=== PATIENT | female | born 1950 | race Caucasian/White ===

== ENCOUNTER 2020-04-07 15:16 | Emergency (ER) | payer MEDICARE, OTHER ==
--- NOTE | 2020-04-07 15:37 | ED Physician Documentation ---
PD HPI LOWER EXT INJURY - Stated complaint Stated Complaint: RIGHT LEG PAIN - Chief complaint Chief Complaint: Trauma Ext - History obtained from History obtained from: Patient - Additional information Additional information: About 10 days ago one of her goats butted her behind the right hamstring. About 5 days later developed pain and swelling, adalberto at night of posterior/medial R knee and calf. No dyspnea. Review of Systems Constitutional: reports: Reviewed and negative Throat: reports: Reviewed and negative Cardiac: reports: Reviewed and negative Respiratory: reports: Reviewed and negative PD PAST MEDICAL HISTORY - Past Medical History Past Medical History: Yes Cardiovascular: Hypertension, High cholesterol Respiratory: Asthma Endocrine/Autoimmune: Type 2 diabetes, Other GI: GERD, Pancreatitis, Hepatitis, Cirrhosis, Diverticulitis HEENT: Macular degeneration, Other Musculoskeletal: Osteopenia, Other Derm: Psoriasis - Past Surgical History Past Surgical History: Yes General: Appendectomy HEENT: Cataracts, Detached retina repair, Tonsil/Adenoidectomy - Present Medications Home Medications: Ambulatory Orders Medication Instructions Recorded Confirmed Aspirin Chewable [St Alpesh 81 mg PO DAILY 05/17/16 07/22/17 Aspirin] Insulin Glargine [Lantus Solostar] 8 - 16 unit SQ BID 05/17/16 07/22/17 Insulin Lispro [Humalog Kwikpen] 6 - 10 unit SQ AC 05/17/16 07/22/17 Lactobacillus Acidophilus 1 each PO BID 05/17/16 07/22/17 [Probiotic Acidophilus] Lipase/Protease/Amylase [Pancreaze 1 each PO AC 05/17/16 07/22/17 21,000 Unit Marco Chicas] Losartan Potassium 25 mg PO DAILY 05/17/16 07/22/17 Metformin HCl 1,000 mg PO BID 05/17/16 07/22/17 Omeprazole 20 mg PO DAILY 05/17/16 07/22/17 Pyridoxine HCl (Vitamin B6) 250 mg PO DAILY 05/17/16 07/22/17 [Vitamin B-6] atenoloL [Tenormin] 12.5 mg PO DAILY 05/17/16 07/22/17 Lipase/Protease/Amylase [Ximena Chicas 07/22/17 24,000 Units Capsule] Promethazine [Phenergan] 25 - 50 mg PO Q6H PRN #10 tab 07/22/17 - Allergies Allergies/Adverse Reactions: Allergies Allergy/AdvReac Type Severity Reaction Status Date / Time acetaminophen [From Tylenol] Allergy Unknown Verified 04/07/20 15:21 amlodipine Allergy Unknown Verified 04/07/20 15:21 codeine Allergy Unknown Verified 04/07/20 15:21 diazepam Allergy Unknown Verified 04/07/20 15:21 erythromycin lactobionate * Allergy Unknown Verified 04/07/20 15:21 [From Erythrocin] lisinopril Allergy Unknown Verified 04/07/20 15:21 morphine Allergy Unknown Verified 04/07/20 15:21 nifedipine Allergy Unknown Verified 04/07/20 15:21 NSAIDS (Non-Steroidal Allergy Unknown Verified 04/07/20 15:21 Anti-Inflamma simvastatin Allergy Unknown Verified 04/07/20 15:21 Sulfa (Sulfonamide Allergy Unknown Verified 04/07/20 15:21 Antibiotics) tramadol Allergy Unknown Verified 04/07/20 15:21 - Social History Does the pt smoke?: No Smoking Status: Never smoker PD ED PE NORMAL - Vitals Vital signs reviewed: Yes - General General: Alert and oriented X 3, No acute distress - Extremities Extremities: Other (Right knee has a small effusion. She is quite tender over the medial joint line in the popliteal fossa. There is moderate calf swelling with negative Homans sign.) - Neuro Neuro: Alert and oriented X 3, Normal speech Results - Vitals Vitals: Vital Signs - 24 hr 04/07/20 04/07/20 15:21 17:37 Temperature 36.5 C 37.5 C Heart Rate 114 H 89 Respiratory 16 18 Rate Blood Pressure 183/81 H 155/75 H O2 Saturation 98 100 Oxygen O2 Source Room air - Rads (name of study) RLE duplex Radiology: EMP read contemporaneously, See rad report R knee XR Radiology: EMP read contemporaneously, See rad report PD MEDICAL DECISION MAKING - ED course ED course: 69-year-old woman with a posttraumatic leg pain and swelling on the right, there is a knee effusion but also calf edema. Differential includes DVT, Rebolledo's cyst, knee sprain. Imaging shows Rebolledo's cyst but no other abnormalities. Departure - Departure Disposition: 01 Home, Self Care Clinical Impression: Rebolledo's cyst of knee Qualifiers: Laterality: right Qualified Code(s): M71.21 - Synovial cyst of popliteal space [Rebolledo], right knee Condition: Good Record reviewed to determine appropriate education?: Yes Instructions: ED Cyst Rebolledo Follow-Up: [facility] [Provider Group] Comments: Ice it and elevate it, if not better in a reasonable timeframe you can follow-up with the orthopedic surgeons for further evaluation and treatment. Return if worse. Discharge Date/Time: 04/07/20 17:45
--- NOTE | 2020-04-07 16:15 | XRAY Report ---
PROCEDURE: Knee 4 View RT INDICATIONS: knee inj TECHNIQUE: 4 views of the right knee(s) were acquired. COMPARISON: None. FINDINGS: Bones: No fractures or dislocations. No suspicious bony lesions. Soft tissues: Small suprapatellar joint effusion is seen. No suspicious soft tissue calcifications. IMPRESSION: No acute right knee fracture or dislocation. Small joint effusion. Reviewed by: Drew Rocha MD on 04/07/2020 4:13 PM PDT Approved by: Drew Rocha MD on 04/07/2020 4:13 PM PDT Station ID: [id number]
--- NOTE | 2020-04-07 17:33 | Ultrasound Report ---
PROCEDURE: Duplex Ext Veins Right INDICATIONS: leg swelling TECHNIQUE: Real-time imaging, as well as color and pulse Doppler interrogation, were performed of the lower extr emity deep veins from the inguinal ligament to the popliteal fossa. COMPARISON: None. FINDINGS: The deep veins are normally compressible, and free of intraluminal thrombus. Color and pu lse Doppler demonstrate normal phasic intraluminal flow. There is normal augmentation response to di stal compression maneuver. 35 mm Rebolledo's cyst. IMPRESSION: 1. No evidence of right lower extremity DVT. 2. Rebolledo's cyst. Reviewed by: Selina Mcdaniel MD on 04/07/2020 4:31 PM SHOSHANA Approved by: Selina Mcdaniel MD on 04/07/2020 4:31 PM SHOSHANA Station ID: [id number]
[2020-04-07 17:38] VITALS: BP 155/75
== END 2020-04-07 17:45 | disposition home or self-care (01) ==
LOC: ED 15:16
DX: M71.21 Synovial cyst of popliteal space [Baker], right knee (principal); M25.461 Effusion, right knee; M79.661 Pain in right lower leg; M79.89 Other specified soft tissue disorders; W55.32XA Struck by other hoof stock, initial encounter; I10 Essential (primary) hypertension; E11.9 Type 2 diabetes mellitus without complications; Z79.4 Long term (current) use of insulin; Z79.82 Long term (current) use of aspirin
CPT/HCPCS: 99283; 99284

== ENCOUNTER 2020-06-02 11:39 | Outpatient (CLI) | payer MEDICARE, OTHER ==
[2020-06-02] MEDS ORDERED: IOVERSOL 320 100 ML VIAL IVP ONE ×2 (11:55→17:01)
--- NOTE | 2020-06-02 15:50 | CT Report ---
PROCEDURE: Abdomen/Pelvis W INDICATIONS: ABD PAIN, NAUSEA W/EATING, HX OF PANCREATITIS CONTRAST: IV CONTRAST: Optiray 320 ml: 100 PO CONTRAST: *NO PO CONTRAST TECHNIQUE: After the administration of contrast, 5 mm thick sections acquired from the diaphragms to the sym physis. 5 mm thick coronal and sagittal reformats were acquired. For radiation dose reduction, the following was used: automated exposure control, adjustment of mA and/or kV according to patient size . COMPARISON: None. FINDINGS: Image quality: Excellent. ABDOMEN: Lung bases: Lung bases are clear. Heart size is normal. Solid organs: Liver and spleen are normal in size and enhancement. Gallbladder appears normal Bili nikko system is non dilated. Pancreas enhances normally. There are several punctate calcifications at the anterior border of the pancreatic head. No adrenal nodules. Kidneys demonstrate normal size and enhancement, without hydronephrosis. Peritoneum and bowel: Bowel loops demonstrate normal wall thickness and caliber. No free fluid or a ir. Nodes and vessels: No retroperitoneal or mesenteric adenopathy by size criteria. Aorta and inferior vena cava are normal in size. Miscellaneous: No ventral hernias. PELVIS: Genitourinary: Bladder wall thickness is normal. Miscellaneous: No inguinal hernias or adenopathy. Bones: No suspicious bony lesions. No vertebral body compression fractures. IMPRESSION: No sign of acute pancreatitis, no sign of biliary distention. Several punctate calcifica tions are present at the anterior border of the pancreatic head seen on CT series 3 image 35, but the se likely are dystrophic calcifications related to prior pancreatitis. Reviewed by: Mamadou Jimenez MD on 06/02/2020 3:48 PM PDT Approved by: Mamadou Jimenez MD on 06/02/2020 3:48 PM PDT Station ID: [id number]
== END 2020-06-02 11:40 | disposition home or self-care (01) ==
LOC: DI 11:39
PROVIDERS: ATTEND Physician Assistant Medical
DX: K86.89 Other specified diseases of pancreas (principal)
CPT/HCPCS: 74177; Q9967

== ENCOUNTER 2020-11-20 13:00 | Emergency (ER) | payer MEDICARE, OTHER ==
[2020-11-20] MEDS ORDERED: SODIUM CHLORIDE 0.9% 1,000 ML IV STA (13:56)
[2020-11-20] MEDS ORDERED: ONDANSETRON 4 MG/2 ML VIAL IVP STA (13:56)
--- NOTE | 2020-11-20 14:02 | ED Physician Documentation ---
History of Present Illness - Stated complaint Stated Complaint: HEADACHE, LOW BODY MUSCLE ACHES - Chief complaint Chief Complaint: Abd Pain - Additonal information Additional information: 70-year-old female presents emergency department for evaluation of generalized leg cramping fatigue and diarrhea. She reports that 3 days ago she began having multiple loose watery stools a day. The diarrhea has somewhat resolved after taking Imodium but the cramping began this morning which worried her. She has had no fevers or vomiting. She has some dysuria but thinks it may be due to dehydration. She does have a history that includes type 2 diabetes, hypertension as well as chronic pancreatitis. Reports her blood sugars have been in the 150s to the 200s at home. Review of Systems Constitutional: reports: Myalgias, Fatigue. denies: Fever, Chills Eyes: reports: Reviewed and negative Ears: reports: Reviewed and negative Nose: reports: Reviewed and negative Throat: reports: Reviewed and negative Cardiac: denies: Chest pain / pressure, Palpitations Respiratory: denies: Dyspnea, Cough GI: reports: Abdominal Pain, Diarrhea. denies: Nausea, Vomiting, Hematemesis, Bloody / black stool : reports: Dysuria. denies: Frequency, Hesitancy, Incontinent Skin: reports: Reviewed and negative Musculoskeletal: reports: Other (Cramping of the bilateral lower extremities) Neurologic: reports: Generalized weakness. denies: Focal weakness, Numbness, Difficulty speaking, Near syncope, Syncope, Confused, Headache, LOC Psychiatric: reports: Reviewed and negative PD PAST MEDICAL HISTORY - Past Medical History Cardiovascular: Hypertension, High cholesterol Respiratory: Asthma Endocrine/Autoimmune: Type 2 diabetes, Other GI: GERD, Pancreatitis, Hepatitis, Cirrhosis, Diverticulitis HEENT: Macular degeneration, Other Musculoskeletal: Osteopenia, Other Derm: Psoriasis - Past Surgical History Past Surgical History: Yes General: Appendectomy HEENT: Cataracts, Detached retina repair, Tonsil/Adenoidectomy - Present Medications Home Medications: Ambulatory Orders Medication Instructions Recorded Confirmed Aspirin Chewable [St Alpesh 81 mg PO DAILY 05/17/16 11/20/20 Aspirin] Insulin Glargine [Lantus Solostar] 8 - 16 unit SQ BID 05/17/16 11/20/20 Insulin Lispro [Humalog Kwikpen] 6 - 10 unit SQ AC 05/17/16 11/20/20 Lactobacillus Acidophilus 1 each PO BID 05/17/16 11/20/20 [Probiotic Acidophilus] Lipase/Protease/Amylase [Pancreaze 1 each PO AC 05/17/16 11/20/20 21,000 Unit Cap ] Losartan Potassium 37.5 mg PO DAILY 05/17/16 11/20/20 Omeprazole 20 mg PO DAILY 05/17/16 11/20/20 Lipase/Protease/Amylase [Creon Dr 1 cap PO TID 07/22/17 11/20/20 24,000 Units Capsule] Albuterol Sulfate [Proair Hfa 1 - 2 puffs INH Q4H PRN 11/20/20 11/20/20 Inhaler] Insulin Glargine [Lantus Solostar] 20 units SQ BID 11/20/20 11/20/20 - Allergies Allergies/Adverse Reactions: Allergies Allergy/AdvReac Type Severity Reaction Status Date / Time acetaminophen [From Tylenol] Allergy Unknown Verified 11/20/20 13:21 amlodipine Allergy Unknown Verified 11/20/20 13:21 codeine Allergy Unknown Verified 11/20/20 13:21 diazepam Allergy Unknown Verified 11/20/20 13:21 erythromycin lactobionate * Allergy Unknown Verified 11/20/20 13:21 [From Erythrocin] lisinopril Allergy Unknown Verified 11/20/20 13:21 morphine Allergy Unknown Verified 11/20/20 13:21 nifedipine Allergy Unknown Verified 11/20/20 13:21 NSAIDS (Non-Steroidal Allergy Unknown Verified 11/20/20 13:21 Anti-Inflamma simvastatin Allergy Unknown Verified 11/20/20 13:21 Sulfa (Sulfonamide Allergy Unknown Verified 11/20/20 13:21 Antibiotics) tramadol Allergy Unknown Verified 11/20/20 13:21 - Social History Does the pt smoke?: No Smoking Status: Never smoker PD ED PE EXPANDED - General General: Alert, No acute distress, Well developed/nourished - Cardiac Cardiac: Tachy, Radial strong equal, Pedal strong equal, Cap refill < 2 sec - Respiratory Respiratory: Clear to ausultation kingsley. No: Distress, Labored, Stridor - Abdomen Abdomen: Hyperactive BS, Tender to palpation (Left-sided abdominal tenderness without guarding or rebound. No CVA tenderness bilaterally). No: Rebound, Guarding - Back Back: Normal exam. No: Vertebral tenderness, Soft tissue tenderness, CVA TTP right, CVA TTP left - Derm Derm: Normal color. No: Rash, Petecchiae, Purpura - Extremities Extremities: Normal, Pedal Pulses Present. No: Deformity, Tenderness, Pedal edema bilateral, Right calf TTP/cord, Left calf TTP/cord - Neuro Neuro: Alert and Oriented X 3, CNII-XII intact, Normal gait, Normal speech - GCS Eye Opening: Spontaneous Motor: Obeys Commands Verbal: Oriented Total: 15 Results - Vitals Vitals: Vital Signs - 24 hr 11/20/20 11/20/20 13:14 16:11 Temperature 36.5 C Heart Rate 111 H 93 Respiratory 14 18 Rate Blood Pressure 160/76 H 143/72 H O2 Saturation 97 98 Oxygen O2 Source Room air - Labs Labs: Laboratory Tests 11/20/20 11/20/20 11/20/20 13:57 14:16 14:16 WBC 7.0 RBC 4.85 Hgb 14.6 Hct 45.0 MCV 92.8 MCH 30.1 MCHC 32.4 RDW 12.3 Plt Count 246 MPV 8.9 Neut # (Auto) 4.2 Lymph # (Auto) 2.2 [place] # (Auto) 0.4 Eos # (Auto) 0.1 Baso # (Auto) 0.0 Absolute Nucleated RBC 0.00 Nucleated RBC % 0.0 Sodium 140 Potassium 4.0 Chloride 99 L Carbon Dioxide 29 Anion Gap 12.0 BUN 14 Creatinine 0.7 Estimated GFR (MDRD) 82 L Glucose 175 H Calcium 9.9 Total Bilirubin 0.7 AST 53 H ALT 47 Alkaline Phosphatase 90 Total Protein 8.2 Albumin 4.4 Globulin 3.8 Albumin/Globulin Ratio 1.2 Lipase 23 Urine Color YELLOW Urine Clarity CLEAR Urine pH 6.0 Ur Specific Mcpherson 1.010 Urine Protein NEGATIVE Urine Glucose (UA) NEGATIVE Urine Ketones NEGATIVE Urine Occult Blood NEGATIVE Urine Nitrite NEGATIVE Urine Bilirubin NEGATIVE Urine Urobilinogen 0.2 (NORMAL) Ur Leukocyte Esterase NEGATIVE Ur Microscopic Review NOT INDICATED Urine Culture Comments NOT INDICATED - Rads (name of study) CT abd Radiology: Final report received (Tonic diverticulosis without signs of diverticulitis. Chronic coarse calcifications in the pancreas may represent chronic pancreatitis.) PD MEDICAL DECISION MAKING - ED course Complexity details: reviewed results, re-evaluated patient, considered differential, d/w patient ED course: This is a well-appearing 70-year-old female that presents to the emergency department for evaluation of cramping in her arms and legs. This followed 2 days of diarrhea which has begun to resolve. She had no fever or leukocytosis. No findings of infection in her urine. CT of the abdomen did not show any findings of concern. She is noted to have chronic pancreatitis which is unchanged. She is tolerating oral fluids. Patient was given 1 L crystalloid here in the emergency department. I suspect that a mild dehydration may been attributed to the cramping. Patient is feeling better and will be discharged home with routine follow-up with her primary care provider Departure - Departure Disposition: Home, Self Care Clinical Impression: Cramp in muscle Condition: Stable Record reviewed to determine appropriate education?: Yes Follow-Up: Dora Bell PA-C [Primary Care Provider] - Comments: You were seen today in the emergency department for cramping in your lower extremities. This followed a few days of diarrhea. I suspect mild dehydration may have been causing your cramping. Reassuringly all of your labs were essentially normal. Your urine showed no signs of infection. The CT scan of the abdomen was also without any worrisome findings. I recommend that you go home continue to stay well-hydrated and drink Pedialyte or eat soups and broth to make sure that your electrolytes remain steady. Return to the emergency department if you develop fevers worsening symptoms, develop chest pain, feel suddenly short of breath or have any other emergent symptoms.
[2020-11-20] MEDS ORDERED: IOVERSOL 320 100 ML VIAL IVP ONE ×2 (14:26→15:10)
[2020-11-20 14:27] LABS: BILIRUBIN,URINE NEGATIVE (NEGATIVE); GLUCOSE, URINE (UA) NEGATIVE (NEGATIVE); KETONES,URINE (UA) NEGATIVE (NEGATIVE); LEUKOCYTE ESTERASE, URINE NEGATIVE (NEGATIVE); NITRITE,URINE NEGATIVE (NEGATIVE); OCCULT BLOOD,URINE NEGATIVE (NEGATIVE); PROTEIN,URINE NEGATIVE (NEGATIVE); UROBILINOGEN,URINE 0.2 (NORMAL) E.U./dL (NORMAL)
[2020-11-20 14:28] LABS: BASOPHILS % (AUTO) 0.4 %; EOSINOPHILS # (AUTO) 0.1 10^3/uL (0.0-0.7); EOSINOPHILS % (AUTO) 1.6 %; HGB - HEMOGLOBIN 14.6 g/dL (12.0-16.0); LYMPHOCYTES # (AUTO) 2.2 10^3/uL (1.5-3.5); LYMPHOCYTES % (AUTO) 32.1 %; MEAN CORPUSCULAR HEMOGLOBIN 30.1 pg (27.0-31.0); MEAN CORPUSCULAR HGB CONC 32.4 g/dL (32.0-36.0); MEAN CORPUSCULAR VOLUME 92.8 fL (81.0-99.0); MEAN PLATELET VOLUME 8.9 fL (7.9-10.8); MONOCYTES # (AUTO) 0.4 10^3/uL (0.0-1.0); NEUTROPHILS # (AUTO) 4.2 10^3/uL (1.5-6.6); NEUTROPHILS % (AUTO) 60.8 %; PLT - PLATELET COUNT 246 10^3/uL (130-450); RED BLOOD COUNT 4.85 10^6/uL (4.20-5.40); RED CELL DISTRIBUTION WIDTH 12.3 % (12.0-15.0)
[2020-11-20 14:30] LABS: CLARITY,URINE CLEAR (CLEAR)
[2020-11-20 14:42] LABS: ALBUMIN 4.4 g/dL (3.2-5.5); ALBUMIN/GLOBULIN RATIO 1.2 (1.0-2.2); BILIRUBIN,TOTAL 0.7 mg/dL (0.2-1.0); CALCIUM 9.9 mg/dL (8.5-10.3); CREATININE 0.7 mg/dL (0.4-1.0); TOTAL PROTEIN 8.2 g/dL (6.7-8.2)
--- NOTE | 2020-11-20 15:30 | CT Report ---
PROCEDURE: Abdomen/Pelvis W INDICATIONS: LLQ Abdominal pain, diverticulitis suspected CONTRAST: IV CONTRAST: Optiray 320 ml: 100 PO CONTRAST: *NO PO CONTRAST TECHNIQUE: After the administration of intravenous contrast, 5 mm thick sections acquired from the diaphragms to the symphysis. 5 mm thick coronal and sagittal reformats were acquired. For radiation dose reducti on, the following was used: automated exposure control, adjustment of mA and/or kV according to gene ent size. COMPARISON: CT abdomen/pelvis 06/02/2020. FINDINGS: Image quality: Excellent. ABDOMEN: Lung bases: Lung bases are clear. Heart size is normal. Solid organs: Liver and spleen are normal in size and enhancement. Gallbladder appears normal. Davidson iary system is non dilated. Calcifications are seen in the pancreatic tail with severe atrophy of the distal pancreatic tail that appears stable when compared to the CT from 06/02/2020. A few calcificati ons are again seen at the anterior border the pancreatic head. No adrenal nodules. Kidneys demonstra te normal size and enhancement, without hydronephrosis. Peritoneum and bowel: Multiple diverticula are seen in the sigmoid and descending colon. No definite acute inflammatory changes are seen to suggest acute diverticulitis. Bowel loops demonstrate normal wall thickness and caliber. No free fluid or air. Nodes and vessels: No retroperitoneal or mesenteric adenopathy by size criteria. Aorta and inferior vena cava are normal in size. Miscellaneous: No ventral hernias. PELVIS: Genitourinary: Bladder wall thickness is normal. The uterus is normal in size. No suspicious adnexa l mass is seen. Miscellaneous: No inguinal hernias or adenopathy. Bones: No suspicious bony lesions. No vertebral body compression fractures. Mild degenerative whitaker ges are seen in the spine. There is mild S-shaped curvature of the lumbar spine. IMPRESSION: 1. Moderate colonic diverticulosis without signs of acute diverticulitis. 2. Chronic coarse calcifications in the pancreas may represent chronic pancreatitis. Reviewed by: Dany Zhang MD on 11/20/2020 3:28 PM PST Approved by: Dany Zhang MD on 11/20/2020 3:28 PM PST Station ID: [id number]
[2020-11-20 16:12] VITALS: BP 143/72
== END 2020-11-20 17:02 | disposition home or self-care (01) ==
LOC: ED 13:00
DX: R25.2 Cramp and spasm (principal); K86.1 Other chronic pancreatitis; E11.9 Type 2 diabetes mellitus without complications; Z79.4 Long term (current) use of insulin
CPT/HCPCS: 36415; 74177; 80053; 81003; 83690; 85025; 96361; 96374; 99282; 99284; Q9967; 81001; 87086

== ENCOUNTER 2021-04-23 06:04 | Day surgery (SDC) | payer MEDICARE, OTHER ==
[2021-04-23] MEDS ORDERED: KETOROLAC 0.45% OPHTH DROPS ONE (06:12)
[2021-04-23] MEDS ORDERED: CYCLOPENTOLATE 1% OPHTH DROPS 2 ML ONE (06:13)
[2021-04-23] MEDS ORDERED: PROPARACAINE 0.5% OPHTH DROPS 15 ML ONE (06:13)
[2021-04-23] MEDS ORDERED: PHENYLEPHRINE 2.5% OPHTH 2 ML DROPS ONE (06:13)
[2021-04-23] MEDS ORDERED: LACTATED RINGERS 1,000 ML IV ONE (06:21)
[2021-04-23] MEDS ORDERED: BRIMONIDINE 0.2% OPHTH DROPS 5 ML ONE (06:54)
[2021-04-23] MEDS ORDERED: EPINEPHrine 1 MG/ML AMP ONE (06:54)
[2021-04-23] MEDS ORDERED: TIMOLOL 0.5% OPHTH DROPS ONE (06:54)
[2021-04-23] MEDS ORDERED: TRIAMCIN/MOXIFLOX OPHTHALMIC 0.6 ML VIAL IO ONE ×2 (06:54→07:38)
[2021-04-23] MEDS ORDERED: VANCOMYCIN OPHTHALMI 8MG/0.8ML 8 MG/0.8 ML SYRINGE IO ONE ×2 (06:55→07:39)
[2021-04-23] MEDS ORDERED: BSS/LIDOCAINE/EPINEPHRINE 1 ML SYRINGE ONE (06:55)
--- NOTE | 2021-04-23 07:12 | ANESTHESIA ---
Pre-Anesthesia VS, & Labs - Diagnosis Right senile combined cataract - Procedure right eye cataract extraction with IOL implant Vital Signs: Temp Pulse Resp BP Pulse Ox 36.6 C 102 H 16 148/67 H 99 04/23/21 06:22 04/23/21 06:22 04/23/21 06:22 04/23/21 06:22 04/23/21 06:22 Height: 5 ft 6 in Weight (kg): 65 kg Body Mass Index: 23.1 BMI Classification: Healthy weight - NPO >8 hours - Is Patient ?: No - Lab Results Current Lab Results: Laboratory Tests 04/23/21 06:38: POC Whole Bld Glucose 136 H Home Medications and Allergies Home Medications: Ambulatory Orders Cetirizine [ZyrTEC] 10 mg PO DAILY 04/23/21 Loperamide [Imodium] 1 cap PO PRN PRN 04/23/21 Vit B6/Me-Thfolate/Me-B12/Ala [Neurophx Dpn Capsule] 1 cap PO DAILY 04/23/21 Aspirin Chewable [St Alpesh Aspirin] 81 mg PO DAILY 05/17/16 Insulin Glargine [Lantus Solostar] 8 - 16 unit SQ BID 05/17/16 Insulin Lispro [Humalog Kwikpen] 6 - 10 unit SQ AC 05/17/16 Lactobacillus Acidophilus [Probiotic Acidophilus] 1 each PO BID 05/17/16 Lipase/Protease/Amylase [Pancreaze 21,[address]] 1 each PO AC 05/17/16 Losartan Potassium 37.5 mg PO DAILY 05/17/16 Omeprazole 20 mg PO DAILY 05/17/16 Lipase/Protease/Amylase [Creon Dr 24,000 Units Capsule] 1 cap PO TID 07/22/17 Albuterol Sulfate [Proair Hfa Inhaler] 1 - 2 puffs INH Q4H PRN 11/20/20 Insulin Glargine [Lantus Solostar] 20 units SQ BID 11/20/20 Cetirizine [ZyrTEC] 10 mg PO DAILY 04/23/21 Loperamide [Imodium] 1 cap PO PRN PRN 04/23/21 Vit B6/Me-Thfolate/Me-B12/Ala [Neurophx Dpn Capsule] 1 cap PO DAILY 04/23/21 Allergies/Adverse Reactions: Allergies Allergy/AdvReac Type Severity Reaction Status Date / Time acetaminophen [From Tylenol] Allergy Unknown Verified 11/20/20 13:21 amlodipine Allergy Unknown Verified 11/20/20 13:21 codeine Allergy Unknown Verified 11/20/20 13:21 diazepam Allergy Unknown Verified 11/20/20 13:21 erythromycin lactobionate * Allergy Unknown Verified 11/20/20 13:21 [From Erythrocin] lisinopril Allergy Unknown Verified 11/20/20 13:21 morphine Allergy Unknown Verified 11/20/20 13:21 nifedipine Allergy Unknown Verified 11/20/20 13:21 NSAIDS (Non-Steroidal Allergy Unknown Verified 11/20/20 13:21 Anti-Inflamma simvastatin Allergy Unknown Verified 11/20/20 13:21 Sulfa (Sulfonamide Allergy Unknown Verified 11/20/20 13:21 Antibiotics) tramadol Allergy Unknown Verified 11/20/20 13:21 Anes History & Medical History - Anesthetic History Anesthesia Complications: reports: Slow wake-up - Medical History Cardiovascular: reports: Hypertension, High cholesterol Pulmonary: reports: Asthma, Sleep apnea (does not use CPAP) Gastrointestinal: reports: GERD, Pancreatitis, Hepatitis, Cirrhosis, Diverticulitis Urinary: reports: None Neuro: reports: None Musculoskeletal: reports: Osteopenia, Other Endocrine/Autoimmune: reports: Type 2 diabetes, Other Blood Disorders: reports: None Skin: reports: Psoriasis Smoking Status: Never smoker Psychosocial: reports: Anxiety History of Cancer?: No - Surgical History General: reports: Appendectomy Eyes Ears Nose Throat (EENT): reports: Detached retina repair, Tonsil/Adenoidectomy Exam General: Alert, Oriented x3, Cooperative, No acute distress Dental: WNL Mouth Openin Fingerbreadth Neck Mobility: Normal Mallampati classification: II Thyromental Distance: less than 4 cm Mental/Cognitive Status: Alert/Oriented X3, Normal for patient Plan Anesthesia Type: MAC Consent for Procedure(s) Verified and Reviewed: Yes Code Status: Attempt Resuscitation ASA classification: 3-Severe systemic disease Is this case an emergency?: No
[2021-04-23] MEDS ORDERED: MIDAZOLAM 2 MG/2 ML VIAL ONE (07:17)
[2021-04-23] MEDS ORDERED: fentaNYL 100 MCG/2 ML VIAL ONE (07:35)
[2021-04-23] MEDS ORDERED: BRIMONIDINE 0.2% OPHTH DROPS 5 ML OPTH ONE (07:37)
[2021-04-23] MEDS ORDERED: EPINEPHrine 1 MG/ML AMP IR ONE (07:37)
[2021-04-23] MEDS ORDERED: CHONDR SULF/HYALURONATE SYRINGE IO ONE (07:38)
[2021-04-23] MEDS ORDERED: BSS/LIDOCAINE/EPINEPHRINE 1 ML SYRINGE IO ONE (07:38)
[2021-04-23] MEDS ORDERED: TIMOLOL 0.5% OPHTH DROPS OPTH ONE (07:38)
[2021-04-23] MEDS ORDERED: PROPARACAINE 0.5% OPHTH DROPS 15 ML EACHEYE ONE (07:39)
[2021-04-23] MEDS ORDERED: LACTATED RINGERS 900 ML IV ONE (07:54)
--- NOTE | 2021-04-23 07:59 | OPERATIVE REPORT ---
Operative Report - Other Other Information/Narrative: Date of Surgery: 04/23/21 Preop Dx: Visually significant cataract right eye. This was the first cataract surgery. Postop Dx: Same Procedure: Phacoemulsification with posterior chamber intraocular lens implant right eye Surgeon: Dr. Ciaran Collado Anesthesia: Monitored anesthesia care Complications: None Operative Indications: This is a 71-year-old F with progressive vision loss in the right eye due to 2+ nuclear sclerotic and 2+ posterior subcapsular cataract. Best corrected visual acuity was 20/20 with glare to 20/20 vision in the right eye. Indications for surgery were: - Difficulty seeing words on a computer screen - Difficulty reading - Difficulty seeing words, closed captions, or game scores on TV - Difficulty seeing street signs - Difficulty driving at night because of headlights from other vehicles The patient was consented at length concerning the risks and benefits of cataract surgery after which the patient expressed a desire to proceed with surgery. Operative Procedure: The patient was taken into OR#3 and placed under monitored anesthesia care. A surgical time-out was conducted confirming correct patient, correct procedure, and correct surgical site. The patient was given topical anesthesia and then prepped and draped in the usual sterile fashion. The eye was entered at the 6 and 3 oclock positions. Intracameral Shugarcaine was injected into the anterior chamber followed by a dispersive viscoelastic. A continuous-tear curvilinear capsulorhexis was performed. The nucleus was hydrodissected and phacoemulsified. The cortex was evacuated using automated infusion and aspiration. A cohesive viscoelastic was injected into the capsular bag and a 15.5 diopter intraocular lens was inserted into the bag. Infusion and aspiration were used to evacuate the viscoelastic materials from the eye. The wounds were hydrated and the eye inflated to physiologic pressure using balanced salt solution. Approximately 0.25ml of a mixture of triamcinolone and moxifloxacin was injected trans-sclerally into the vitreous in the inferotemporal quadrant using a 30 gauge cannula. An additional 0.55ml of a mixture of triamcinolone, moxifloxacin, and vancomycin was injected subconjunctivally in the superior quadrant for infection and inflammation prophylaxis. Wound integrity was checked with Weck-Lorin sponges. The patient was taken from the operating room in good condition and given post-op instructions.
--- NOTE | 2021-04-23 08:12 | OPERATIVE REPORT ---
Operative Report - Other Other Information/Narrative: Op report written in error.
[2021-04-23 08:30] VITALS: BP 130/67
--- NOTE | 2021-04-23 10:49 | ANESTHESIA POST OP EVALUATION ---
Anesthesia Post Eval - Post Anesthesia Eval Vitals: Last Vital Signs Temp 36.1 C L 04/23/21 08:15 Pulse 98 04/23/21 08:15 Resp 12 04/23/21 08:15 BP 130/67 04/23/21 08:15 Pulse Ox 96 04/23/21 08:15 CV Function Including HR & BP: Stable Pain Control: Satisfactory Nausea & Vomiting: Negative Mental Status: Baseline Respiratory Status: Airway Patent Hydration Status: Satisfactory Anesthesia Complications: None
== END 2021-04-23 06:05 | disposition home or self-care (01) ==
LOC: SDS 06:04
PROVIDERS: ATTEND Ophthalmology
DX: E11.36 Type 2 diabetes mellitus with diabetic cataract (principal); H25.811 Combined forms of age-related cataract, right eye; Z79.4 Long term (current) use of insulin; G47.30 Sleep apnea, unspecified
CPT/HCPCS: 66984; A9270; J3490; J7120

== ENCOUNTER 2021-04-23 20:52 | Emergency (ER) | payer MEDICARE, OTHER ==
--- NOTE | 2021-04-23 21:58 | ED Physician Documentation ---
PD HPI OPHTHO - Stated complaint Stated Complaint: POST OP COMPLICATIONS - Chief complaint Chief Complaint: Heent - History obtained from History obtained from: Patient - History of Present Illness Timing - onset: Enter time (19:00), Today Timing - details: Abrupt onset Pain level now: 2 Location: Right Associated symptoms: Decreased vision (floater, per patient) Recently seen: Surgery - Additional information Additional information: patient underwent right eye cataract extraction with lens implant this morning. at approximately 7 PM tonight, she noted large black floater with maroon color around the edges in right eye visual field. Mild right eye pain but no different than it has been all day since the procedure. she says the floater is predominantly in upper field of vision Review of Systems Eyes: reports: Decreased vision (floater obscures portion of vision). denies: Loss of vision, Photophobia, Discharge PD PAST MEDICAL HISTORY - Past Medical History Cardiovascular: Hypertension, High cholesterol Respiratory: Asthma, Sleep apnea Neuro: None Endocrine/Autoimmune: Type 2 diabetes, Other GI: GERD, Pancreatitis, Hepatitis, Cirrhosis, Diverticulitis : None HEENT: Macular degeneration, Other Musculoskeletal: Osteopenia, Other Derm: Psoriasis - Past Surgical History Past Surgical History: Yes General: Appendectomy HEENT: Cataracts, Detached retina repair, Tonsil/Adenoidectomy - Present Medications Home Medications: Ambulatory Orders Medication Instructions Recorded Confirmed Aspirin Chewable [St Alpesh 81 mg PO DAILY 05/17/16 04/23/21 Aspirin] Insulin Lispro [Humalog Kwikpen] 6 - 10 unit SQ AC 05/17/16 04/23/21 Lactobacillus Acidophilus 1 each PO BID 05/17/16 04/23/21 [Probiotic Acidophilus] Losartan Potassium 37.5 mg PO DAILY 05/17/16 04/23/21 Omeprazole 20 mg PO DAILY 05/17/16 04/23/21 Lipase/Protease/Amylase [Creon Dr 1 cap PO TID 07/22/17 04/23/21 24,000 Units Capsule] Albuterol Sulfate [Proair Hfa 1 - 2 puffs INH Q4H PRN 11/20/20 04/23/21 Inhaler] Insulin Glargine [Lantus Solostar] 20 units SQ BID 11/20/20 04/23/21 Cetirizine [ZyrTEC] 10 mg PO DAILY 04/23/21 04/23/21 Vit B6/Me-Thfolate/Me-B12/Ala 1 cap PO DAILY 04/23/21 04/23/21 [Neurophx Dpn Capsule] - Allergies Allergies/Adverse Reactions: Allergies Allergy/AdvReac Type Severity Reaction Status Date / Time acetaminophen [From Tylenol] Allergy Unknown Verified 04/23/21 20:55 amlodipine Allergy Unknown Verified 04/23/21 20:55 codeine Allergy Unknown Verified 04/23/21 20:55 diazepam Allergy Unknown Verified 04/23/21 20:55 erythromycin lactobionate * Allergy Unknown Verified 04/23/21 20:55 [From Erythrocin] lisinopril Allergy Unknown Verified 04/23/21 20:55 morphine Allergy Unknown Verified 04/23/21 20:55 nifedipine Allergy Unknown Verified 04/23/21 20:55 NSAIDS (Non-Steroidal Allergy Unknown Verified 04/23/21 20:55 Anti-Inflamma simvastatin Allergy Unknown Verified 04/23/21 20:55 Sulfa (Sulfonamide Allergy Unknown Verified 04/23/21 20:55 Antibiotics) tramadol Allergy Unknown Verified 04/23/21 20:55 - Social History Does the pt smoke?: No Smoking Status: Never smoker Does the pt drink ETOH?: No Does the pt have substance abuse?: No PD ED PE NORMAL - Vitals Vital signs reviewed: Yes - General General: Alert and oriented X 3, No acute distress, Well developed/nourished PD ED PE EXPANDED - HEENT HEENT: Pupils unequal (right eye pupill is mid-sized, mild but incomplete reaction to light (does not contrict normally). left pupil is mid-sized, reacts normally to light. ), EOMI, Other (mild right eye conjunctival injection) - Eyes Eyes: Visual acuity - see nn, Anterior chambers clear, Normal fundi (using panophthalmoscope; good visualization achieved (right eye)) Results - Vitals Vitals: Oxygen O2 Source Room air PD MEDICAL DECISION MAKING - ED course Complexity details: considered differential, d/w patient ED course: d/w Dr. Collado (ophthalmology); he says her symptom description is common for the first 1-3 days post operative for this procedure and no tests nor new treatment is necessary at this time, can discharge home and follow up tomorrow as scheduled with Dr. Collado. I relayed this information to patient and she is reassured and comfortable with d/c home. Departure - Departure Disposition: Home, Self Care Clinical Impression: Vision changes Condition: Good Instructions: Flashes and Floaters Follow-Up: Ciaran Collado MD [Provider Admit Priv/Credential] - Comments: I spoke with Dr. Collado; he says the visual changes you are describing are typical and expected after the procedure you had with the medications that were given. He will reevaluate you tomorrow as scheduled. Discharge Date/Time: 04/23/21 22:40
[2021-04-23 22:27] VITALS: BP 144/72
== END 2021-04-23 22:40 | disposition home or self-care (01) ==
LOC: ED 20:52
DX: H53.8 Other visual disturbances (principal); Z98.41 Cataract extraction status, right eye; I10 Essential (primary) hypertension; E11.36 Type 2 diabetes mellitus with diabetic cataract; Z79.4 Long term (current) use of insulin
CPT/HCPCS: 99281

== ENCOUNTER 2021-05-12 13:32 | Outpatient (CLI) | payer MEDICARE, OTHER ==
--- NOTE | 2021-05-12 15:08 | Ultrasound Report ---
PROCEDURE: Pelvic w/Transvaginal INDICATIONS: Postmenopausal bleeding TECHNIQUE: Real-time scanning was performed of the pelvic organs, with image documentation. Additional endovagi nal scanning was necessary due to incomplete visualization of the adnexal and endometrial structures by transabdominal scanning. COMPARISON: 11/20/2020 CT abdomen and pelvis FINDINGS: No pathologic free abdominal or pelvic fluid. Uterus: The uterus measures 1.8 x 3.5 x 4.9 cm. There are a few echogenic foci within the uterine gilma metrium measuring up to 4 mm, likely representing parenchymal calcifications or perhaps tiny degenera ting fibroids. There is also a definite right anterior intramural uterine fibroid measuring 4 x 3 x 5 mm. The endometrial stripe complex measures up to 2 mm in maximal double layer thickness. Ovaries: Left ovary not visualized. Right ovary measures 1.2 x 1.4 x 2.37 m and is normal with no ov bereket or adnexal mass. IMPRESSION: Normal thickness endometrium. Right anterior intramural uterine mass consistent with fibroid. Additional suspected subcentimeter ca lcified/degenerated uterine fibroids. Reviewed by: Nilson Carrillo MD on 05/12/2021 3:07 PM PDT Approved by: Nilson Carrillo MD on 05/12/2021 3:07 PM PDT Station ID: [id number]
== END 2021-05-12 13:33 | disposition home or self-care (01) ==
LOC: DI 13:32
PROVIDERS: ATTEND Physician Assistant Medical
DX: N95.0 Postmenopausal bleeding (principal); D25.1 Intramural leiomyoma of uterus

== ENCOUNTER 2021-05-21 12:35 | Outpatient (CLI) | payer MEDICARE, OTHER ==
--- NOTE | 2021-05-22 12:21 | Mammography Report ---
BILATERAL DIGITAL SCREENING MAMMOGRAM 3D/2D: 05/21/2021 CLINICAL: Routine screening. Comparison is made to exams dated: 06/05/2019 mammogram, 05/29/2018 mammogram, 01/07/2017 mammogram, 06/2017 mammogram - [facility], 10/08/2014 mammogram, and 10/31/2012 mammogram - [facility]. The tissue of both breasts is predominantly fatty. No significant masses, calcifications, or other findings are seen in either breast. There has been no significant interval change. IMPRESSION: NEGATIVE There is no mammographic evidence of malignancy. A 1 year screening mammogram is recommended. This exam was interpreted at Station ID: [id number]. NOTE: For mammograms, a report in lay terms will be sent to the patient. Approximately 15% of breast malignancies will not be visualized mammographically. In the management of a palpable breast mass, a negative mammogram must not discourage biopsy of a clinically suspicious lesion. Electronically Signed By: Rodrigo Rodriguez M.D. [email or web address]:05/21/2021 14:34:38 ACR BI-RADS Category 1: Negative 3341F PARENCHYMAL PATTERN: (F) - The breast(s) demonstrate(s) diffuse fatty replacement. BI-RADS CATEGORY: (1) - 1 RECOMMENDATION: (ANNUAL) - Recommend routine annual screening mammography. [id number] 1 year screening LATERALITY: (B)
== END 2021-05-21 12:36 | disposition home or self-care (01) ==
LOC: DI.N 12:35
DX: Z12.31 Encounter for screening mammogram for malignant neoplasm of breast (principal)

== ENCOUNTER 2021-06-11 06:01 | Day surgery (SDC) | payer MEDICARE, OTHER ==
[2021-06-11] MEDS ORDERED: LACTATED RINGERS 1,000 ML IV ONE ×2 (06:32→08:49)
[2021-06-11] MEDS ORDERED: KETOROLAC 0.45% OPHTH DROPS ONE (06:38)
[2021-06-11] MEDS ORDERED: CYCLOPENTOLATE 1% OPHTH DROPS 2 ML ONE (06:39)
[2021-06-11] MEDS ORDERED: PHENYLEPHRINE 2.5% OPHTH 2 ML DROPS ONE (06:39)
[2021-06-11] MEDS ORDERED: PROPARACAINE 0.5% OPHTH DROPS 15 ML ONE ×3 (06:39→08:02)
[2021-06-11] MEDS ORDERED: TIMOLOL 0.5% OPHTH DROPS ONE (07:12)
[2021-06-11] MEDS ORDERED: EPINEPHrine 1 MG/ML AMP ONE (07:12)
[2021-06-11] MEDS ORDERED: BRIMONIDINE 0.2% OPHTH DROPS 5 ML ONE (07:12)
[2021-06-11] MEDS ORDERED: TRIAMCIN/MOXIFLOX OPHTHALMIC 0.6 ML VIAL IO ONE ×2 (07:12→07:27)
[2021-06-11] MEDS ORDERED: BSS/LIDOCAINE/EPINEPHRINE 1 ML SYRINGE ONE (07:13)
[2021-06-11] MEDS ORDERED: VANCOMYCIN OPHTHALMI 8MG/0.8ML 8 MG/0.8 ML SYRINGE IO ONE ×2 (07:13→07:27)
--- NOTE | 2021-06-11 07:13 | ANESTHESIA ---
Pre-Anesthesia VS, & Labs - Diagnosis left eye cataract - Procedure Left CATIOL Vital Signs: Temp Pulse Resp BP Pulse Ox 36.4 C L 98 12 147/69 H 98 06/11/21 06:37 06/11/21 06:37 06/11/21 06:37 06/11/21 06:37 06/11/21 06:37 Height: 5 ft 6 in Weight (kg): 66.4 kg Body Mass Index: 23.6 BMI Classification: Healthy weight - NPO >8 hours - Is Patient ?: No - Lab Results Current Lab Results: Laboratory Tests 06/11/21 07:00: POC Whole Bld Glucose 160 H Lab results reviewed: Yes Home Medications and Allergies Aspirin Chewable [St Alpesh Aspirin] 81 mg PO DAILY 05/17/16 Insulin Lispro [Humalog Kwikpen] 6 - 10 unit SQ AC 05/17/16 Lactobacillus Acidophilus [Probiotic Acidophilus] 1 each PO DAILY 05/17/16 Losartan Potassium 37.5 mg PO DAILY 05/17/16 Omeprazole 20 mg PO DAILY 05/17/16 Lipase/Protease/Amylase [Creon Dr 24,000 Units Capsule] 1 cap PO TID 07/22/17 Albuterol Sulfate [Proair Hfa Inhaler] 1 - 2 puffs INH Q4H PRN 11/20/20 Insulin Glargine [Lantus Solostar] 20 units SQ BID 11/20/20 Cetirizine [ZyrTEC] 10 mg PO DAILY 04/23/21 Vit B6/Me-Thfolate/Me-B12/Ala [Neurophx Dpn Capsule] 1 cap PO DAILY 04/23/21 Allergies/Adverse Reactions: Allergies Allergy/AdvReac Type Severity Reaction Status Date / Time lisinopril Allergy Severe Anaphylaxis Verified 06/10/21 13:05 morphine Allergy Severe Anaphylaxis Verified 06/10/21 13:05 amlodipine Allergy Intermediate Hives Verified 06/10/21 13:05 codeine Allergy Intermediate Hives Verified 06/10/21 13:05 diazepam Allergy Intermediate Hives Verified 06/10/21 13:05 erythromycin lactobionate * Allergy Intermediate Hives Verified 06/10/21 13:05 [From Erythrocin] nifedipine Allergy Intermediate Hives Verified 06/10/21 13:05 NSAIDS (Non-Steroidal Allergy Intermediate Hives Verified 06/10/21 13:05 Anti-Inflamma simvastatin Allergy Intermediate Hives Verified 06/10/21 13:05 Sulfa (Sulfonamide Allergy Intermediate Hives Verified 06/10/21 13:05 Antibiotics) tramadol Allergy Intermediate Hives Verified 06/10/21 13:05 acetaminophen [From Tylenol] Allergy Unknown Verified 06/10/21 13:05 metoprolol Allergy Hives Verified 06/10/21 13:05 Anes History & Medical History - Anesthetic History Anesthesia Complications: reports: No previous complications Family history of Anesthesia Complications: Denies Family history of Malignant Hyperthermia: Denies - Medical History Cardiovascular: reports: Hypertension, High cholesterol Pulmonary: reports: Asthma, Sleep apnea Gastrointestinal: reports: GERD, Pancreatitis, Hepatitis, Cirrhosis, Diverticulitis Urinary: reports: None Neuro: reports: None Musculoskeletal: reports: Osteopenia, Other Endocrine/Autoimmune: reports: Type 2 diabetes, Other Blood Disorders: reports: None Skin: reports: Psoriasis Smoking Status: Never smoker - Surgical History General: reports: Appendectomy Eyes Ears Nose Throat (EENT): reports: Cataracts, Detached retina repair, Tonsil/Adenoidectomy Exam General: Alert, Oriented x3, Cooperative, No acute distress Dental: WNL Mouth Openin Fingerbreadth Neck Mobility: Normal Mallampati classification: I Respiratory: Lungs clear, Normal breath sounds, No respiratory distress, No accessory muscle use Cardiovascular: Regular rate, Normal S1, Normal S2, No murmurs Plan Anesthesia Type: MAC Consent for Procedure(s) Verified and Reviewed: Yes Code Status: Attempt Resuscitation ASA classification: 3-Severe systemic disease Is this case an emergency?: No
[2021-06-11] MEDS ORDERED: MIDAZOLAM 2 MG/2 ML VIAL ONE (07:22)
[2021-06-11] MEDS ORDERED: PROPARACAINE 0.5% OPHTH DROPS 15 ML EACHEYE ONE (07:27)
[2021-06-11] MEDS ORDERED: TIMOLOL 0.5% OPHTH DROPS OPTH ONE (07:27)
[2021-06-11] MEDS ORDERED: EPINEPHrine 1 MG/ML AMP IR ONE (07:27)
[2021-06-11] MEDS ORDERED: CHONDR SULF/HYALURONATE SYRINGE IO ONE (07:27)
[2021-06-11] MEDS ORDERED: BSS/LIDOCAINE/EPINEPHRINE 1 ML SYRINGE IO ONE (07:27)
[2021-06-11] MEDS ORDERED: BRIMONIDINE 0.2% OPHTH DROPS 5 ML OPTH ONE (07:27)
[2021-06-11] MEDS ORDERED: fentaNYL 100 MCG/2 ML VIAL ONE (07:46)
--- NOTE | 2021-06-11 08:03 | OPERATIVE REPORT ---
Operative Report - Other Other Information/Narrative: Date of Surgery: 06/11/21 Preop Dx: Visually significant cataract left eye. Cataract surgery was performed in the right eye on . Postop Dx: Same Procedure: Phacoemulsification with posterior chamber intraocular lens implant left eye Surgeon: Dr. Ciaran Collado Anesthesia: Monitored anesthesia care Complications: None Operative Indications: This is a 71-year-old F with progressive vision loss in the left eye due to 2+ nuclear sclerotic and 1+ posterior subcapsular cataract. Best corrected visual acuity was 20/25 with glare to 20/40 vision in the left eye. Indications for surgery were: - Overall decrease in vision - Difficulty reading - Difficulty seeing words, closed captions, or game scores on TV - Difficulty seeing street signs - Difficulty driving in low light or at night - Difficulty driving at night because of headlights from other vehicles - Difficulty with glare or bright lights in any situation The patient was consented at length concerning the risks and benefits of cataract surgery after which the patient expressed a desire to proceed with surgery. Operative Procedure: The patient was taken into OR#3 and placed under monitored anesthesia care. A surgical time-out was conducted confirming correct patient, correct procedure, and correct surgical site. The patient was given topical anesthesia and then prepped and draped in the usual sterile fashion. The eye was entered at the 6 and 3 oclock positions. Intracameral Shugarcaine was injected into the anterior chamber followed by a dispersive viscoelastic. A continuous-tear curvilinear capsulorhexis was performed. The nucleus was hydrodissected and phacoemulsified. The cortex was evacuated using automated infusion and aspiration. A cohesive viscoelastic was injected into the capsular bag and a 15.0 diopter intraocular lens was inserted into the bag. Infusion and aspiration were used to evacuate the viscoelastic materials from the eye. The wounds were hydrated and the eye inflated to physiologic pressure using balanced salt solution. Approximately 0.25ml of a mixture of triamcinolone and moxifloxacin was injected trans-sclerally into the vitreous in the inferotemporal quadrant using a 30 gauge cannula. An additional 0.55ml of a mixture of triamcinolone, moxifloxacin, and vancomycin was injected subconjunctivally in the superior quadrant for infection and inflammation prophylaxis. Wound integrity was checked with Weck-Lorin sponges. The patient was taken from the operating room in good condition and given post-op instructions.
[2021-06-11 08:46] VITALS: BP 133/51
--- NOTE | 2021-06-11 10:29 | ANESTHESIA POST OP EVALUATION ---
Anesthesia Post Eval - Post Anesthesia Eval Vitals: Last Vital Signs Temp 37.1 C 06/11/21 08:46 Pulse 100 06/11/21 08:46 Resp 16 06/11/21 08:46 BP 133/51 H 06/11/21 08:46 Pulse Ox 99 06/11/21 08:46 CV Function Including HR & BP: Stable Pain Control: Satisfactory Nausea & Vomiting: Negative Mental Status: Baseline Respiratory Status: Airway Patent Hydration Status: Satisfactory Anesthesia Complications: None
== END 2021-06-11 06:02 | disposition home or self-care (01) ==
LOC: SDS 06:01
PROVIDERS: ATTEND Ophthalmology
DX: E11.36 Type 2 diabetes mellitus with diabetic cataract (principal); H25.812 Combined forms of age-related cataract, left eye; Z79.4 Long term (current) use of insulin; G47.30 Sleep apnea, unspecified; Z98.41 Cataract extraction status, right eye
CPT/HCPCS: 66984; A9270; J3490; J7120

== ENCOUNTER 2022-05-19 17:32 | Outpatient (CLI) | payer MEDICARE, OTHER ==
--- NOTE | 2022-05-20 10:14 | XRAY Report ---
PROCEDURE: Foot 2 View LT INDICATIONS: CONTUSION OF LEFT 2-3 DIGITS TECHNIQUE: Two views of the foot were acquired. COMPARISON: None. FINDINGS: Moderate hallux valgus. Mild 1st MTP joint space narrowing. Otherwise no joint space narrowing or deg enerative changes. No acute fracture or dislocation. IMPRESSION: Moderate hallux valgus and mild 1st MTP osteoarthritis. No acute finding. Reviewed by: Nilson Carrillo MD on 05/20/2022 10:12 AM PDT Approved by: Nilson Carrillo MD on 05/20/2022 10:12 AM PDT Station ID: [id number]
== END 2022-05-19 23:59 | disposition home or self-care (01) ==
LOC: DI.N 17:32
PROVIDERS: ATTEND Nurse Practitioner
DX: S90.122A Contusion of left lesser toe(s) without damage to nail, initial encounter (principal); M20.12 Hallux valgus (acquired), left foot; M19.072 Primary osteoarthritis, left ankle and foot

== ENCOUNTER 2022-05-29 19:31 | Outpatient (CLI) | payer MEDICARE, OTHER | END 2022-05-29 19:32 | disposition home or self-care (01) | LOC: SC 19:31 | PROVIDERS: ATTEND Nurse Practitioner Family | DX: G47.33 Obstructive sleep apnea (adult) (pediatric) (principal); G47.61 Periodic limb movement disorder | CPT/HCPCS: 95810 ==

== ENCOUNTER 2022-07-26 13:53 | Emergency (ER) | payer MEDICARE, OTHER ==
[2022-07-26 15:09] LABS: B. PARAPERTUSSIS- RESP PCR PAN NOT DETECTED; B. PERTUSSIS- RESP PCR PANEL NOT DETECTED; C. PNEUMONIAE- RESP PCR PANEL NOT DETECTED; CORONAVIRUS 229E-RESP PCR NOT DETECTED; CORONAVIRUS HKU1-RESP PCR NOT DETECTED; CORONAVIRUS NL63-RESP PCR NOT DETECTED; CORONAVIRUS OC43-RESP PCR NOT DETECTED; HUMAN METAPNEUMOVIRUS NOT DETECTED; INFLUENZA A- RESP PCR PANEL NOT DETECTED; INFLUENZA B - RESP PCR PANEL NOT DETECTED; M. PNEUMONIAE- RESP PCR PANEL NOT DETECTED; PARAINFLUENZA VIRUS 1 NOT DETECTED; PARAINFLUENZA VIRUS 2 NOT DETECTED; PARAINFLUENZA VIRUS 3 NOT DETECTED; PARAINFLUENZA VIRUS 4 NOT DETECTED; RHINOVIRUS/ENTEROVIRUS NOT DETECTED; RSV- RESP PCR PANEL NOT DETECTED; SARS-CoV-2 -RESP PCR PANEL NOT DETECTED
--- NOTE | 2022-07-26 16:23 | XRAY Report ---
PROCEDURE: Chest 1 View X-Ray INDICATIONS: chest pain TECHNIQUE: One view of the chest was acquired. COMPARISON: None. FINDINGS: Surgical changes and devices: None. Lungs and pleura: No pleural effusions or pneumothorax. There is mild diffuse reticulonodular pulmon nikko opacity. Mediastinum: Mediastinal contours appear normal. Heart size is normal. Bones and chest wall: No suspicious bony lesions. Overlying soft tissues appear unremarkable. IMPRESSION: Mild atypical pneumonia. Reviewed by: Selina Alexis MD on 07/26/2022 4:22 PM PST Approved by: Selina Alexis MD on 07/26/2022 4:22 PM [facility] Station ID: [id number]
--- NOTE | 2022-07-26 17:44 | ED Physician Documentation ---
<Sánchez Roldan - Last Filed: 07/26/22 17:44> History of Present Illness - Stated complaint Stated Complaint: COLD SYMPTOMS - Chief complaint Chief Complaint: Resp PD PAST MEDICAL HISTORY - Past Medical History Cardiovascular: Hypertension, High cholesterol Respiratory: Asthma, Sleep apnea Neuro: None Endocrine/Autoimmune: Type 2 diabetes, Other GI: GERD, Pancreatitis, Hepatitis, Cirrhosis, Diverticulitis : None HEENT: Macular degeneration, Other Musculoskeletal: Osteopenia, Other Derm: Psoriasis - Past Surgical History Past Surgical History: Yes General: Appendectomy HEENT: Cataracts, Detached retina repair, Tonsil/Adenoidectomy - Present Medications Home Medications: Ambulatory Orders Medication Instructions Recorded Confirmed Aspirin Chewable [St Alpesh 81 mg PO DAILY 05/17/16 06/10/21 Aspirin] Insulin Lispro [Humalog Kwikpen] 6 - 10 unit SQ AC 05/17/16 06/10/21 Lactobacillus Acidophilus 1 each PO DAILY 05/17/16 06/10/21 [Probiotic Acidophilus] Losartan Potassium 37.5 mg PO DAILY 05/17/16 06/11/21 Omeprazole 20 mg PO DAILY 05/17/16 06/11/21 Lipase/Protease/Amylase [Creon Dr 1 cap PO TID 07/22/17 06/10/21 24,000 Units Capsule] Albuterol Sulfate [Proair Hfa 1 - 2 puffs INH Q4H PRN 11/20/20 06/11/21 Inhaler] Insulin Glargine [Lantus Solostar] 20 units SQ BID 11/20/20 06/10/21 Cetirizine [ZyrTEC] 10 mg PO DAILY 04/23/21 06/10/21 Vit B6/Me-Thfolate/Me-B12/Ala 1 cap PO DAILY 04/23/21 06/10/21 [Neurophx Dpn Capsule] - Allergies Allergies/Adverse Reactions: Allergies Allergy/AdvReac Type Severity Reaction Status Date / Time lisinopril Allergy Severe Anaphylaxis Verified 06/10/21 13:05 morphine Allergy Severe Anaphylaxis Verified 06/10/21 13:05 amlodipine Allergy Intermediate Hives Verified 06/10/21 13:05 codeine Allergy Intermediate Hives Verified 06/10/21 13:05 diazepam Allergy Intermediate Hives Verified 06/10/21 13:05 erythromycin lactobionate * Allergy Intermediate Hives Verified 06/10/21 13:05 [From Erythrocin] nifedipine Allergy Intermediate Hives Verified 06/10/21 13:05 NSAIDS (Non-Steroidal Allergy Intermediate Hives Verified 06/10/21 13:05 Anti-Inflamma simvastatin Allergy Intermediate Hives Verified 06/10/21 13:05 Sulfa (Sulfonamide Allergy Intermediate Hives Verified 06/10/21 13:05 Antibiotics) tramadol Allergy Intermediate Hives Verified 06/10/21 13:05 acetaminophen [From Tylenol] Allergy Unknown Verified 06/10/21 13:05 metoprolol Allergy Hives Verified 06/10/21 13:05 - Social History Does the pt smoke?: No Smoking Status: Never smoker Does the pt drink ETOH?: No Does the pt have substance abuse?: No <Sheryl Chase - Last Filed: 07/26/22 18:14> History of Present Illness - Additonal information Additional information: 72-year-old female presents emergency department for evaluation of cough that began about 6 days ago. Subjective fevers at home though no temperature of her records of fever. No vomiting. She does have chronic diarrhea secondary to history of pancreatitis. No history of asthma or COPD. Vaccinated for COVID-19. Review of Systems Constitutional: denies: Fever, Chills Eyes: reports: Reviewed and negative Nose: reports: Reviewed and negative Throat: reports: Reviewed and negative Cardiac: reports: Reviewed and negative Respiratory: reports: Reviewed and negative GI: reports: Diarrhea (Chronic) : reports: Dysuria Results - Vitals Vitals: Vital Signs - 24 hr 07/26/22 07/26/22 14:00 17:52 Temperature 37.8 C Heart Rate 125 H 117 H Respiratory 16 18 Rate Blood Pressure 146/83 H 156/70 H O2 Saturation 97 98 Oxygen O2 Source Room air - Labs Labs: Laboratory Tests 07/26/22 14:08 Nasal Adenovirus (PCR) NOT DETECTED Nasal B. parapertussis DNA (PCR) NOT DETECTED Nasal Coronavir 229E PCR NOT DETECTED Nasal Coronavir HKU1 PCR NOT DETECTED Nasal Coronavir NL63 PCR NOT DETECTED Nasal Coronavir OC43 PCR NOT DETECTED Nasal Enterovir/Rhinovir PCR NOT DETECTED Nasal Influenza B PCR NOT DETECTED Nasal Influenza A PCR NOT DETECTED Nasal Parainfluen 1 PCR NOT DETECTED Nasal Parainfluen 2 PCR NOT DETECTED Nasal Parainfluen 3 PCR NOT DETECTED Nasal Parainfluen 4 PCR NOT DETECTED Nasal RSV (PCR) NOT DETECTED Nasal B.pertussis DNA PCR NOT DETECTED Nasal C.pneumoniae (PCR) NOT DETECTED Charlie Human Metapneumo PCR NOT DETECTED Nasal M.pneumoniae (PCR) NOT DETECTED Nasal SARS-CoV-2 (PCR) NOT DETECTED
[2022-07-26] MEDS ORDERED: AMOX/CLAV 875 MG/125 MG TABLET PO STA (18:12)
[2022-07-26] MEDS ORDERED: DOXYCYCLINE 100 MG TABLET PO STA (18:12)
--- NOTE | 2022-07-26 18:26 | ED Physician Documentation ---
History of Present Illness - Stated complaint Stated Complaint: COLD SYMPTOMS - Chief complaint Chief Complaint: Resp - Additonal information Additional information: 72-year-old female presents emergency department for evaluation of 6 days pr oductive cough and subjective fevers. However her temperatures at home have not been elevated. No history of coronary artery disease or COPD. She does have a history of diabetes secondary to chronic pancreatitis. No vomiting. She is taking her usual medications. Fully vaccinated for COVID. No recent travel. She denies chest pain or dyspnea. Review of Systems Constitutional: denies: Fever, Chills Eyes: reports: Reviewed and negative Nose: reports: Reviewed and negative Throat: reports: Reviewed and negative Cardiac: denies: Chest pain / pressure, Palpitations Respiratory: denies: Dyspnea, Cough GI: reports: Abdominal Pain. denies: Nausea, Vomiting : reports: Reviewed and negative Skin: reports: Reviewed and negative PD PAST MEDICAL HISTORY - Past Medical History Cardiovascular: Hypertension, High cholesterol Respiratory: Asthma, Sleep apnea Neuro: None Endocrine/Autoimmune: Type 2 diabetes, Other GI: GERD, Pancreatitis, Hepatitis, Cirrhosis, Diverticulitis : None HEENT: Macular degeneration, Other Musculoskeletal: Osteopenia, Other Derm: Psoriasis - Past Surgical History Past Surgical History: Yes General: Appendectomy HEENT: Cataracts, Detached retina repair, Tonsil/Adenoidectomy - Present Medications Home Medications: Ambulatory Orders Medication Instructions Recorded Confirmed Aspirin Chewable [St Alpesh 81 mg PO DAILY 05/17/16 06/10/21 Aspirin] Insulin Lispro [Humalog Kwikpen] 6 - 10 unit SQ AC 05/17/16 06/10/21 Lactobacillus Acidophilus 1 each PO DAILY 05/17/16 06/10/21 [Probiotic Acidophilus] Losartan Potassium 37.5 mg PO DAILY 05/17/16 06/11/21 Omeprazole 20 mg PO DAILY 05/17/16 06/11/21 Lipase/Protease/Amylase [Creon Dr 1 cap PO TID 07/22/17 06/10/21 24,000 Units Capsule] Albuterol Sulfate [Proair Hfa 1 - 2 puffs INH Q4H PRN 11/20/20 06/11/21 Inhaler] Insulin Glargine [Lantus Solostar] 20 units SQ BID 11/20/20 06/10/21 Cetirizine [ZyrTEC] 10 mg PO DAILY 04/23/21 06/10/21 Vit B6/Me-Thfolate/Me-B12/Ala 1 cap PO DAILY 04/23/21 06/10/21 [Neurophx Dpn Capsule] Amox/Clav 875/125 [Augmentin] 1 each PO Q12H #20 tablet 07/26/22 Benzonatate [Tessalon] 200 mg PO TID #20 07/26/22 Doxycycline Hyclate 100 mg PO BID #14 cap 07/26/22 - Allergies Allergies/Adverse Reactions: Allergies Allergy/AdvReac Type Severity Reaction Status Date / Time lisinopril Allergy Severe Anaphylaxis Verified 06/10/21 13:05 morphine Allergy Severe Anaphylaxis Verified 06/10/21 13:05 amlodipine Allergy Intermediate Hives Verified 06/10/21 13:05 codeine Allergy Intermediate Hives Verified 06/10/21 13:05 diazepam Allergy Intermediate Hives Verified 06/10/21 13:05 erythromycin lactobionate * Allergy Intermediate Hives Verified 06/10/21 13:05 [From Erythrocin] nifedipine Allergy Intermediate Hives Verified 06/10/21 13:05 NSAIDS (Non-Steroidal Allergy Intermediate Hives Verified 06/10/21 13:05 Anti-Inflamma simvastatin Allergy Intermediate Hives Verified 06/10/21 13:05 Sulfa (Sulfonamide Allergy Intermediate Hives Verified 06/10/21 13:05 Antibiotics) tramadol Allergy Intermediate Hives Verified 06/10/21 13:05 acetaminophen [From Tylenol] Allergy Unknown Verified 06/10/21 13:05 metoprolol Allergy Hives Verified 06/10/21 13:05 - Social History Does the pt smoke?: No Smoking Status: Never smoker Does the pt drink ETOH?: No Does the pt have substance abuse?: No PD ED PE NORMAL - General General: Alert and oriented X 3, No acute distress, Well developed/nourished - HEENT HEENT: Atraumatic, Moist mucous membranes - Neck Neck: Supple, no meningeal sign, No adenopathy - Cardiac Cardiac: RRR (Mild tachycardia sinus tach with a rate of 110 on the monitor), No murmur - Respiratory Respiratory: No respiratory distress, Clear bilaterally - Abdomen Abdomen: Normal bowel sounds, Soft Results - Vitals Vitals: Vital Signs - 24 hr 07/26/22 07/26/22 14:00 17:52 Temperature 37.8 C Heart Rate 125 H 117 H Respiratory 16 18 Rate Blood Pressure 146/83 H 156/70 H O2 Saturation 97 98 Oxygen O2 Source Room air - Labs Labs: Laboratory Tests 07/26/22 14:08 Nasal Adenovirus (PCR) NOT DETECTED Nasal B. parapertussis DNA (PCR) NOT DETECTED Nasal Coronavir 229E PCR NOT DETECTED Nasal Coronavir HKU1 PCR NOT DETECTED Nasal Coronavir NL63 PCR NOT DETECTED Nasal Coronavir OC43 PCR NOT DETECTED Nasal Enterovir/Rhinovir PCR NOT DETECTED Nasal Influenza B PCR NOT DETECTED Nasal Influenza A PCR NOT DETECTED Nasal Parainfluen 1 PCR NOT DETECTED Nasal Parainfluen 2 PCR NOT DETECTED Nasal Parainfluen 3 PCR NOT DETECTED Nasal Parainfluen 4 PCR NOT DETECTED Nasal RSV (PCR) NOT DETECTED Nasal B.pertussis DNA PCR NOT DETECTED Nasal C.pneumoniae (PCR) NOT DETECTED Charlie Human Metapneumo PCR NOT DETECTED Nasal M.pneumoniae (PCR) NOT DETECTED Nasal SARS-CoV-2 (PCR) NOT DETECTED - Rads (name of study) cxr Radiology: Final report received (Mild atypical pneumonia) PD MEDICAL DECISION MAKING - ED course Complexity details: reviewed results, considered differential, d/w patient ED course: Well-appearing 72-year-old female presents emergency department for evaluation of 6 days cough and congestion. Respiratory PCR panel is negative. She is not hypoxic and denies chest pain or dyspnea. She does have a history of chronic pancreatitis that is resulted down to type 2 diabetes. Cardiopulmonary auscultation reveals no adventitious breath sounds. Room air sats are 99 100%. Chest x-ray however is suggestive of a mild atypical pneumonia. Patient will be started on doxycycline and Augmentin. We discussed that these are the medications appropriate given her allergy profile. We also discussed that she was a high risk patient to do poorly in the setting of pneumonia given her past medical history but she looks her treatment at home and we discussed the usual emergent return precautions Departure - Departure Disposition: 01 Home, Self Care Clinical Impression: Community acquired pneumonia Qualifiers: Laterality: unspecified laterality Qualified Code(s): J18.9 - Pneumonia, unspecified organism Condition: Stable Record reviewed to determine appropriate education?: Yes Instructions: ED Pneumonia Adult Prescriptions: Amox/Clav 875/125 [Augmentin] 1 each PO Q12H #20 tablet Doxycycline Hyclate 100 mg PO BID #14 cap Benzonatate [Tessalon] 200 mg PO TID #20 Comments: Faby was seen today in the emergency department because you have had a cough for about 6 to 7 days. The x-ray shows that you have developed pneumonia. We have given you your first dose of antibiotic here in the emergency department and we have sent a prescription for 2 antibiotics to the [facility] in [place]. Please fill this and begin taking as soon as directed in the morning If at any point you find that your symptoms are worsening, you have uncontrolled fevers severe chest pain or shortness of air then you should return immediately to the ER. Please discuss this ED visit with your primary care provider. I would like your chest x-ray to be repeated in 2 to 4 weeks to make sure that the pneumonia has resolved.
[2022-07-26 18:41] VITALS: BP 145/85
== END 2022-07-26 18:40 | disposition home or self-care (01) ==
LOC: ED 13:53
DX: J18.9 Pneumonia, unspecified organism (principal); Z88.1 Allergy status to other antibiotic agents; Z20.822 Contact with and (suspected) exposure to COVID-19
CPT/HCPCS: 71045; 87633; 99283; 99284; A9270

== ENCOUNTER 2022-09-01 10:07 | Outpatient (CLI) | payer MEDICARE, OTHER ==
--- NOTE | 2022-09-02 13:01 | XRAY Report ---
PROCEDURE: Chest 2 View X-Ray INDICATIONS: COUGH TECHNIQUE: 2 views of the chest were acquired. COMPARISON: Chest x-ray one view, 07/26/2022 FINDINGS: Surgical changes and devices: None. Lungs and pleura: Left lower lobe infiltrates consistent with pneumonia. Bilateral linear densities are most like scars and atelectasis. No pleural effusions or pneumothorax. Mediastinum: Mediastinal contours are normal. Heart size is normal. Bones and chest wall: No suspicious bony abnormalities. Soft tissues appear unremarkable. IMPRESSION: Left lower lobe pneumonia. Reviewed by: Vi Conde MD on 09/02/2022 1:00 PM PST Approved by: Vi Conde MD on 09/02/2022 1:00 PM PST Station ID: [id number]
== END 2022-09-01 10:08 | disposition home or self-care (01) ==
LOC: DI.N 10:07
PROVIDERS: ATTEND Student in an Organized Health Care Education/Training Program
DX: J18.9 Pneumonia, unspecified organism (principal)

== ENCOUNTER 2022-09-28 10:53 | Outpatient (CLI) | payer MEDICARE, OTHER ==
[2022-09-28 11:37] LABS: ALBUMIN 4.2 g/dL (3.2-5.5); ALBUMIN/GLOBULIN RATIO 1.1 (1.0-2.2); BILIRUBIN,TOTAL 0.7 mg/dL (0.2-1.0); CALCIUM 9.6 mg/dL (8.5-10.3); CREATININE 0.7 mg/dL (0.4-1.0); TOTAL PROTEIN 8.2 g/dL (6.7-8.2)
== END 2022-09-28 10:54 | disposition home or self-care (01) ==
LOC: LAB 10:53
PROVIDERS: ATTEND Student in an Organized Health Care Education/Training Program
DX: J18.9 Pneumonia, unspecified organism (principal)
CPT/HCPCS: 36415; 80053

== ENCOUNTER 2022-09-28 10:53 | Outpatient (CLI) | payer MEDICARE, OTHER ==
[2022-09-28] MEDS ORDERED: iohexoL-300 100 ML VIAL ONE (12:39)
[2022-09-28] MEDS ORDERED: iohexoL-300 100 ML VIAL IVP ONE (15:05)
--- NOTE | 2022-09-28 16:23 | CT Report ---
PROCEDURE: CHEST W INDICATIONS: PNA CONTRAST:[id number] 80ml TECHNIQUE: After the administration of intravenous contrast, 1 mm axial images were acquired from the pulmonary apices through the posterior costophrenic angles. Axial 5 mm soft tissue kernel reconstructions were performed as well as 8 mm axial MIP and coronal and sagittal 5 mm reformations. For radiation dose reduction, the following was used: automated exposure control, adjustment of mA and/or kV according to patient size. COMPARISON: 09/01/2022 radiograph FINDINGS: Image quality: Good Lungs and pleura: Scattered nodules, for example in the right upper lobe measuring 7 mm. Scattered sc arring and atelectasis also present, particularly in the lingula and middle lobe. Some more nodular a reas are present in right middle lobe. Centrilobular nodularity is seen bilaterally, most confluent in the posterior segment of the right up per lobe. No pleural effusions. Mediastinum, heart, and esophagus: No hiatal hernia. Heart size is normal. There are coronary calcifi cations. Prominent mediastinal lymph nodes are present, indeterminate, possibly reactive in this clin ical setting. Chest wall and thyroid: Unremarkable Upper abdomen: Partially visualized, no gross abnormality. Suspected pancreatic calcifications. Bones: No acute or suspicious osseous abnormality. IMPRESSION: Bilateral infectious or inflammatory nodules in the lungs. Solitary nodules and areas of possible thick scarring/atelectasis are also present, for example in th e right upper lobe (4/96) measures 7 mm, and in the right middle lobe. Follow-up imaging is recommended in 3 months or sooner. Reviewed by: Erik Anton MD on 09/28/2022 4:22 PM PST Approved by: Erik Anton MD on 09/28/2022 4:22 PM PST Station ID: [id number]
== END 2022-09-28 10:54 | disposition home or self-care (01) ==
LOC: DI 10:53
PROVIDERS: ATTEND Student in an Organized Health Care Education/Training Program
DX: J18.9 Pneumonia, unspecified organism (principal); R91.8 Other nonspecific abnormal finding of lung field
CPT/HCPCS: 36415; 71260; 80053; Q9967

== ENCOUNTER 2022-09-28 10:54 | Outpatient (CLI) | payer MEDICARE, OTHER | END 2022-09-28 10:55 | disposition home or self-care (01) | LOC: DI 10:54 | PROVIDERS: ATTEND Internal Medicine | DX: Z53.9 Procedure and treatment not carried out, unspecified reason (principal) ==

== ENCOUNTER 2022-12-22 11:39 | Outpatient (CLI) | payer MEDICARE, OTHER ==
[2022-12-22] MEDS ORDERED: iohexoL-300 100 ML VIAL ONE (13:09)
[2022-12-22 13:32] LABS: CREATININE 0.6 mg/dL (0.4-1.0)
--- NOTE | 2022-12-22 15:51 | CT Report ---
PROCEDURE: CHEST W INDICATIONS: ABN CHEST CT CONTRAST: 100ml Omnipaque 300 TECHNIQUE: After the administration of intravenous contrast, 1 mm axial images were acquired from the pulmonary apices through the posterior costophrenic angles. Axial 5 mm soft tissue kernel reconstructions were performed as well as 8 mm axial MIP and coronal and sagittal 5 mm reformations. For radiation dose reduction, the following was used: automated exposure control, adjustment of mA and/or kV according to patient size. COMPARISON: None. FINDINGS: Image quality: Excellent. Lungs and pleura: Slightly decreased extent of patchy consolidation in the lingula and right middle l obe. Tree-in-bud nodules in the posterior right upper lobe, as well as bronchiectasis and volume loss in the right middle lobe. Scattered pulmonary nodules, mostly unchanged from prior. Examples include : -6-7 mm solid nodule, lateral right upper lobe (4/78). -5 mm solid nodule, anterior right upper lobe (4/170). Mediastinum: Heart size is enlarged. Annular calcification lateral valve. Moderate LAD calcifications . No pericardial effusions. No mediastinal adenopathy by size criteria. No large vessel abnormality. Chest wall and lower neck: Thyroid is unremarkable. No axillary or supraclavicular adenopathy by size . Bones: No aggressive osseous abnormality. Upper Abdomen: Cirrhosis. Chronic pancreatitis. IMPRESSION: Slightly decreased extent of infection in the right middle lobe and lingula, with persistent tree-in- bud nodules in the right middle lobe, bronchiectasis in the lingula and middle lobe with associated a telectasis. 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 Additional solid nodules remain stable, largest measuring 6 to 7 mm in the right upper lobe. Follow-u p in 6-12 months as of September 19, 2022, per Fleischner Society guidelines. Cirrhosis and chronic pancreatitis. Reviewed by: Maxwell Garcia on 12/22/2022 3:50 PM PDT Approved by: Maxwell Garcia on 12/22/2022 3:50 PM PDT Station ID: [id number]
[2022-12-22] MEDS ORDERED: iohexoL-300 100 ML VIAL IVP ONE (17:55)
== END 2022-12-22 11:40 | disposition home or self-care (01) ==
LOC: LAB 11:39
PROVIDERS: ATTEND Internal Medicine
DX: J18.9 Pneumonia, unspecified organism (principal); J98.4 Other disorders of lung; J47.0 Bronchiectasis with acute lower respiratory infection; J98.11 Atelectasis; R91.8 Other nonspecific abnormal finding of lung field; K74.60 Unspecified cirrhosis of liver; K86.1 Other chronic pancreatitis
CPT/HCPCS: 36415; 71260; 82565; Q9967

== ENCOUNTER 2023-04-15 12:12 | Outpatient (CLI) | payer MEDICARE, OTHER ==
--- NOTE | 2023-04-18 11:58 | Mammography Report ---
BILATERAL DIGITAL SCREENING MAMMOGRAM 3D/2D: 04/15/2023 CLINICAL: Routine screening. Comparison is made to exams dated: 06/05/2019 mammogram - [facility], 05/21/2021 mammogram - [facility], 05/29/2018 mammogram, 01/07/2017 mammogram, 12/27/2016 mammogram - [facility], and 10/08/2014 mammogram - [facility]. Both breasts are almost entirely fatty (category a/<25% glandular tissue). No significant masses, calcifications, or other findings are seen in either breast. There has been no significant interval change. IMPRESSION: NEGATIVE There is no mammographic evidence of malignancy. A 1 year screening mammogram is recommended. Based on the Tyrer Cuzick model (a risk assessment model) the patients lifetime risk is 5.1% and her 10 year risk is 5.1%. According to the ACR, ACS, and NCCN guidelines, an annual breast MRI exam josiah g with mammogram is recommended if the patients lifetime risk is 20% or greater. This exam was interpreted at Station ID: [id number]. NOTE: For mammograms, a report in lay terms will be sent to the patient. Approximately 15% of breast malignancies will not be visualized mammographically. In the management of a palpable breast mass, a negative mammogram must not discourage biopsy of a clinically suspicious lesion. Electronically Signed By: Erik worley/abe:04/15/2023 13:48:55 letter sent: No_Letter ACR BI-RADS Category 1: Negative 3341F PARENCHYMAL PATTERN: (F) - The breast(s) demonstrate(s) diffuse fatty replacement. BI-RADS CATEGORY: (1) - 1 Mammogram [id number] 1 year screening LATERALITY: (B)
== END 2023-04-15 12:13 | disposition home or self-care (01) ==
LOC: DI 12:12
DX: Z12.31 Encounter for screening mammogram for malignant neoplasm of breast (principal)

== ENCOUNTER 2023-10-05 09:22 | Emergency (ER) | payer MEDICARE, OTHER ==
[2023-10-05 09:39] VITALS: BP 160/66; O2SAT 97
--- NOTE | 2023-10-05 14:08 | ED Physician Documentation ---
PD HPI BACK PAIN - Stated complaint Stated Complaint: GLF - Chief complaint Chief Complaint: Trauma Ch/Bk - History obtained from History obtained from: Patient - Additional information Additional information: 73-year-old female presents to the emergency department after experiencing a mechanical ground-level fall this morning. Patient reports that she was going out to her car slipped back fell onto her back. She did not lose consciousness she denies hitting her head no seizure-like activity no nausea or vomiting after the incident. Patient reports some generalized back pain and is worried about a possible fracture and is seeking out imaging. Patient reports that she was able to eventually get herself up and ambulate back to her house and then her son-in-law helped her come to the emergency department for further evaluation. PD PAST MEDICAL HISTORY - Past Medical History Past Medical History: Yes Cardiovascular: Hypertension, High cholesterol Respiratory: Asthma, Sleep apnea Neuro: None Endocrine/Autoimmune: Type 2 diabetes, Other GI: GERD, Pancreatitis, Hepatitis, Cirrhosis, Diverticulitis : None HEENT: Macular degeneration, Other Psych: None Musculoskeletal: Osteopenia, Other Derm: Psoriasis - Past Surgical History Past Surgical History: Yes General: Appendectomy HEENT: Cataracts, Detached retina repair, Tonsil/Adenoidectomy - Present Medications Home Medications: Ambulatory Orders Medication Instructions Recorded Confirmed Aspirin Chewable [St Alpesh 81 mg PO DAILY 05/17/16 06/10/21 Aspirin] Insulin Lispro [Humalog Kwikpen] 6 - 10 unit SQ AC 05/17/16 06/10/21 Lactobacillus Acidophilus 1 each PO DAILY 05/17/16 06/10/21 [Probiotic Acidophilus] Losartan Potassium 37.5 mg PO DAILY 05/17/16 06/11/21 Omeprazole 20 mg PO DAILY 05/17/16 06/11/21 Lipase/Protease/Amylase [Creon Dr 1 cap PO TID 07/22/17 06/10/21 24,000 Units Capsule] Albuterol Sulfate [Proair Hfa 1 - 2 puffs INH Q4H PRN 11/20/20 06/11/21 Inhaler] Insulin Glargine [Lantus Solostar] 20 units SQ BID 11/20/20 06/10/21 Cetirizine [ZyrTEC] 10 mg PO DAILY 04/23/21 06/10/21 Vit B6/Me-Thfolate/Me-B12/Ala 1 cap PO DAILY 04/23/21 06/10/21 [Neurophx Dpn Capsule] Amox/Clav 875/125 [Augmentin] 1 each PO Q12H #20 tablet 07/26/22 Benzonatate [Tessalon] 200 mg PO TID #20 07/26/22 Doxycycline Hyclate 100 mg PO BID #14 cap 07/26/22 - Allergies Allergies/Adverse Reactions: Allergies Allergy/AdvReac Type Severity Reaction Status Date / Time lisinopril Allergy Severe Anaphylaxis Verified 10/05/23 09:28 morphine Allergy Severe Anaphylaxis Verified 10/05/23 09:28 amlodipine Allergy Intermediate Hives Verified 10/05/23 09:28 codeine Allergy Intermediate Hives Verified 10/05/23 09:28 diazepam Allergy Intermediate Hives Verified 10/05/23 09:28 erythromycin lactobionate * Allergy Intermediate Hives Verified 10/05/23 09:28 [From Erythrocin] nifedipine Allergy Intermediate Hives Verified 10/05/23 09:28 NSAIDS (Non-Steroidal Allergy Intermediate Hives Verified 10/05/23 09:28 Anti-Inflamma simvastatin Allergy Intermediate Hives Verified 10/05/23 09:28 Sulfa (Sulfonamide Allergy Intermediate Hives Verified 10/05/23 09:28 Antibiotics) tramadol Allergy Intermediate Hives Verified 10/05/23 09:28 acetaminophen [From Tylenol] Allergy Unknown Verified 10/05/23 09:28 metoprolol Allergy Hives Verified 10/05/23 09:28 - Social History Does the pt smoke?: No Smoking Status: Never smoker Does the pt drink ETOH?: No Does the pt have substance abuse?: No - Immunizations Immunizations are current?: Yes - POLST Patient has POLST: No PD ED PE NORMAL - Vitals Vital signs reviewed: Yes - General General: Alert and oriented X 3, No acute distress, Well developed/nourished - HEENT HEENT: Atraumatic, PERRL, EOMI - Neck Neck: No bony TTP, C-Spine cleared by NEXUS criteria - Cardiac Cardiac: RRR, Strong equal pulses - Respiratory Respiratory: No respiratory distress - Back Back: No CVA TTP, No spinal TTP, Other - Derm Derm: Normal color, Other (no bruising) - Extremities Extremities: No deformity, Normal ROM s pain - Neuro Neuro: Alert and oriented X 3, head shipper 2-12 intact, No motor deficit, No sensory deficit, Normal speech Eye Opening: Spontaneous Motor: Obeys Commands Verbal: Oriented GCS Score: 15 Results - Vitals Vitals: Vital Signs - 24 hr 10/05/23 09:29 Temperature 36.5 C Heart Rate 100 Respiratory 16 Rate Blood Pressure 160/66 H O2 Saturation 97 Oxygen O2 Source Room air - Rads (name of study) Lumbar spine x-ray Relevant Findings:: Final report received, EMP independent interpretation of test (No obvious fractures or osseous lesions) PD Medical Decision Making - ED course ED course: 73-year-old female presents to the emergency for generalized back pain after experiencing a mechanical ground-level fall on ice this morning patient did not hit her head she does had no loss of consciousness she is not on any blood thinners. Ideally we would have done a CT scan however lumbar but unfortunately his CT scan is down at this time. We did plain films lumbar x-ray which did not reveal any osseous fractures or lesions. She does not have a history of osteoporosis or chronic steroid use but she was told if she has any worsening back pain and a stool or urinary incontinence, or any other concerning symptoms to come back to the emergency department for possible CT scan repeat imaging. She has had no nausea or vomiting, she denies hitting her head, also denies any neck pain. At this time patient is safe for discharge with the understanding of strict return precautions and understands when to come back to the emergency department. She was offered pain medication while here as well as a lidocaine patch but patient declined she had no ecchymosis or bruising throughout her back. Departure - Departure Disposition: 01 Home, Self Care Clinical Impression: Ground-level fall Back strain Qualifiers: Encounter type: initial encounter Qualified Code(s): S39.012A - Strain of muscle, fascia and tendon of lower back, initial encounter Instructions: ED Back Care Tips, ED Low Back Pain Injury Comments: Thank you for trusting us with your care we have completed some x-rays of your spine and do not see any obvious fractures or any other acute abnormalities. C ontinue with the Tylenol we offered doing some lidocaine patches or possible stronger medication but you declined given your significant allergy list. Please know that if you are having ongoing worsening back pain CT scan is the best form of imaging for further evaluation of possible fracture. Were not seeing anything at this time with x-ray but if you start to feel any worse follow-up with your primary care provider for consideration of a possible CT scan. Please come back to the ER for started to experience any shortness of breath, chest pain, nausea vomiting, incontinence of stool or urine, or any other concerning symptoms. Continue to move as you are able, soon able to return to your normal daily activities the quicker you will cover this back injury. Forms: PCP List Discharge Date/Time: 10/05/23 14:36
--- NOTE | 2023-10-05 14:24 | XRAY Report ---
PROCEDURE: Lumbar Spine 2-3V INDICATIONS: GLF onto back TECHNIQUE: 3 views of the lumbar spine were acquired. COMPARISON: None. FINDINGS: Bones: 5 [id number] vertebrae are present. There is normal bony alignment. No vertebral body compression fractures. No suspicious bony lesions. Soft tissues: Overlying bowel gas pattern is normal. No suspicious soft tissue calcifications. IMPRESSION: No acute fracture. No osseous lesion. If symptoms and/or clinical suspicion for patholog y continue, further assessment with repeat plain films, or advanced imaging (e.g., CT, MRI, or bone s can) is recommended for further assessment. Reviewed by: Selina Alexis MD on 10/05/2023 2:23 PM PST Approved by: Selina Alexis MD on 10/05/2023 2:23 PM PST Station ID: [id number]
== END 2023-10-05 14:36 | disposition home or self-care (01) ==
LOC: ED 09:22
DX: S39.012A Strain of muscle, fascia and tendon of lower back, initial encounter (principal); W18.30XA Fall on same level, unspecified, initial encounter; I10 Essential (primary) hypertension; E11.9 Type 2 diabetes mellitus without complications; Z79.4 Long term (current) use of insulin
CPT/HCPCS: 99283

== ENCOUNTER 2023-11-16 10:40 | Outpatient (CLI) | payer MEDICARE, OTHER ==
--- NOTE | 2023-11-17 09:38 | Ultrasound Report ---
LIMITED ULTRASOUND OF RIGHT BREAST: 11/16/2023 CLINICAL: Focal right breast pain. Comparison is made to exams dated: 11/16/2023 mammogram, 04/15/2023 mammogram, 05/21/2021 mammogram - [facility], 06/05/2019 mammogram, 05/29/2018 mammogram, and 12/27/2016 mammogram - [facility]. Ultrasound of the right breast 9-10 o'clock region was performed on the area of interest. Lofton scale images of the real-time examination were reviewed. IMPRESSION: NEGATIVE There is no sonographic evidence of malignancy. There is no mammographic or sonographic abnormality seen in the right breast to correspond with the p ain, however, clinical followup is recommended. Return to annual mammogram screening schedule is recommended. Future imaging is recommended as follo ws: 04/15/2024 screening mammogram. This exam was interpreted at Station ID: [id number]. Electronically Signed By: Sherrie pitt/:11/16/2023 11:31:58 Ultrasound BI-RADS: 1 Negative BI-RADS CATEGORY: (1) - 1 Mammogram [id number] return to screening LATERALITY: (B)
--- NOTE | 2023-11-17 09:38 | Mammography Report ---
UNILATERAL RIGHT DIGITAL DIAGNOSTIC MAMMOGRAM 3D/2D: 11/16/2023 CLINICAL: Focal right breast pain. Comparison is made to exams dated: 04/15/2023 mammogram, 05/21/2021 mammogram - [facility], 06/05/2019 mammogram, 05/29/2018 mammogram, 01/07/2017 mammogram, and 12/27/2016 mammogram - [facility]. The right breast is almost entirely fatty (category a/<25% glandular tissue). No significant masses, calcifications, or other findings are seen in the breast. IMPRESSION: INCOMPLETE: NEEDS ADDITIONAL IMAGING EVALUATION There is no mammographic abnormality seen in the right breast to correspond with the pain, however, t argeted ultrasound of the right breast is recommended and will be performed immediately following thi s exam. Future imaging is recommended as follows: 04/15/2024 screening mammogram. Based on the Tyrer Cuzick model (a risk assessment model) the patient's lifetime risk is 5.1% and her 10 year risk is 5.1%. According to the ACR, ACS, and NCCN guidelines, an annual breast MRI exam josiah g with mammogram is recommended if the patient's lifetime risk is 20% or greater. This exam was interpreted at Station ID: [id number]. NOTE: For mammograms, a report in lay terms will be sent to the patient. Approximately 15% of breast malignancies will not be visualized mammographically. In the management of a palpable breast mass, a negative mammogram must not discourage biopsy of a clinically suspicious lesion. Electronically Signed By: Sherrie Adam M.D. lk/:11/16/2023 11:13:01 ACR BI-RADS Category 0: Incomplete 3340F PARENCHYMAL PATTERN: (F) - The breast(s) demonstrate(s) diffuse fatty replacement. BI-RADS CATEGORY: (0) - 0 Ultrasound [id number] Immediate follow-up LATERALITY: (B)
== END 2023-11-16 10:41 | disposition home or self-care (01) ==
LOC: DI 10:40
PROVIDERS: ATTEND Internal Medicine
DX: N63.10 Unspecified lump in the right breast, unspecified quadrant (principal); N63.11 Unspecified lump in the right breast, upper outer quadrant; N64.4 Mastodynia